=== PATIENT | female | born 1935 | race Two or more races ===

== ENCOUNTER 2017-02-01 09:46 | Inpatient (IN) | payer MEDICARE ==
[2017-02-01 09:55] VITALS: BMI 23.9
[2017-02-01] MEDS ORDERED: Albuterol-Ipratrop 3 mg / 0.5 (3 ml) UD INH STA (11:01)
[2017-02-01] MEDS ORDERED: Albuterol-Ipratrop 3 mg / 0.5 (3 ml) UD IH STA (11:01)
--- NOTE | 2017-02-01 11:06 | ED PDOC ---
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 (+) rhinorrhea, (-) cough, congestion, chest pain, abdominal pain, leg pain, or dizziness. Daughter believes that SOB has been gradually worsening over the last month and may be secondary to anemia. Patient states she currently takes iron pills and Levothyroxine. No numbness, tingles, weakness. PCP: Linh Past Medical History Reviewed: Historical Data, Nursing Documentation, Vital Signs Vital Signs: Last Vital Signs Temp 98.7 F 02/01/17 10:17 Pulse 67 02/01/17 10:17 Resp 19 02/01/17 10:18 BP 144/70 02/01/17 10:17 Pulse Ox 100 02/01/17 11:14 - Medical History PMH: Anemia, CVA, Hypothyroidism - Family History Family History: States: Unknown Family Hx - Living Arrangements Living Arrangements: With Family - Social History Current smoker - smoking cessation education provided: No Ex-Smoker (has not smoked in the last 12 months): No Alcohol: None Drugs: Denies - Allergies Allergies/Adverse Reactions: Allergies Allergy/AdvReac Type Severity Reaction Status Date / Time No Known Allergies Allergy Verified 02/01/17 10:12 Curb-65 Severity Score - CURB-65 Severity Score Confusion: No Respiratory Rate greater than/equal to 30: No Systolic BP <90 or Diastolic BP less than/equal 60mmHg: No Age >64: Yes Curb-65 Score: 1 Percentage 30-day mortality: 2.7% Wells Criteria for PE - Wells Criteria for Pulmonary Embolism Heart Rate >100: No Hemoptysis: No Total Score: 0 Review of Systems ROS Statement: Except As Marked, All Systems Reviewed And Found Negative ENT: Positive for: Nose Discharge. Negative for: Nose Congestion Cardiovascular: Negative for: Chest Pain Respiratory: Positive for: Shortness of Breath. Negative for: Cough Physical Exam - Reviewed Nursing Documentation Reviewed: Yes Vital Signs Reviewed: Yes - Physical Exam Appears: Positive for: Non-toxic, No Acute Distress Head Exam: Positive for: ATRAUMATIC, NORMOCEPHALIC Skin: Positive for: Normal Color, Warm, Dry Eye Exam: Positive for: Normal appearance, EOMI, PERRL ENT: Positive for: Normal ENT Inspection, Nasal Congestion. Negative for: Pharyngeal Erythema, Tonsillar Exudate Neck: Positive for: Normal, Painless ROM, Supple Cardiovascular/Chest: Positive for: Regular Rate, Rhythm. Negative for: Murmur Respiratory: Positive for: Decreased Breath Sounds, Wheezing (mild). Negative for: Respiratory Distress Gastrointestinal/Abdominal: Positive for: Normal Exam, Soft. Negative for: Tenderness Back: Positive for: Normal Inspection. Negative for: L CVA Tenderness, R CVA Tenderness Extremity: Positive for: Normal ROM. 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 Negative for: Motor/Sensory Deficits - Laboratory Results Result Diagrams: 02/01/17 11:31 02/01/17 11:31 Interpretation Of Abn Labs: 23.1.3 bun/cr; 6.7 hg - ECG ECG: Positive for: Interpreted By Me, Viewed By Me ECG Rhythm: Positive for: Normal QRS, Normal ST Segment, Sinus Rhythm Interpretation Of Abn EKG: q waves septal O2 Sat by Pulse Oximetry: 100 (RA) Pulse Ox Interpretation: Normal - Radiology X-Ray: Interpreted by Me, Viewed By Me X-Ray Interpretation: Infiltrates (RLL) - Progress ED Course And Treament: 1309: Will need transfusion. Consented. 1332: Stable. AAOx3. Pain free. Spoke with Dr. Puentes. Will admit tele. Will give further orders when pt. reaches floor. Medical Decision Making Medical Decision Makin Initial impression: evaluation for dyspnea Initial plan: * VBG * EKG * Labs * Magnesium * Phosphorus * Trop I * PTT/PT * CXR * Duonebs 3mL INH x2 * NS IV * BCx * Peak flow pre/post Tx Scribe Attestation: Documented by Josey cD acting as a scribe for Jonathan Cherry MD. Scribe Attestation: All medical record entries made by the Scribe were at my direction and personally dictated by me. I have reviewed the chart and agree that the record accurately reflects my personal performance of the history, physical exam, medical decision making, and the department course for this patient. I have also personally directed, reviewed, and agree with the discharge instructions and disposition. Disposition - Clinical Impression Clinical Impression: Anemia, Pneumonia - Patient ED Disposition Is Patient to be Admitted: Yes - Disposition Disposition Time: 13:34 Condition: FAIR - Pt Status Changed To: Hospital Disposition Of: Inpatient - Admit Certification Admit to Inpatient:: After my assessment, the patient will require hospitalization for at least two midnights. This is because of the severity of symptoms shown, intensity of services needed, and/or the medical risk in this patient being treated as an outpatient. - POA Present On Arrival: None
[2017-02-01] MEDS ORDERED: Albuterol-Ipratrop 3 mg / 0.5 (3 ml) UD ONE ×2 (11:26→11:44)
[2017-02-01 11:43] LABS: VENOUS BLOOD GAS BASE EXCESS -4.4 mmol/L (0.0-2.0); VENOUS BLOOD GAS PCO2 39 mmHg (40-60); VENOUS BLOOD GAS PO2 17 mm/Hg (30-55); VENOUS BLOOD PH 7.34 (7.32-7.43)
[2017-02-01] MEDS: Sodium Chloride 0.9% 1,000 ML IV SCH (11:44)
[2017-02-01 11:56] LABS: BASO # 0.1 K/uL (0.0-0.2); BASO % 2.1 % (0.0-2.0); EOS # 0.2 K/uL (0.0-0.7); EOS % 3.2 % (0.0-4.0); HEMOGLOBIN 6.7 g/dL (12.0-16.0); LYMPH # 0.8 K/uL (1.0-4.3); LYMPH % 16.7 % (20.0-40.0); MEAN CELL VOLUME 67.8 fl (81.0-99.0); MEAN PLATELET VOLUME 9.3 fl (7.2-11.7); MONO # 0.5 K/uL (0.0-0.8); MONO % 9.9 % (0.0-10.0); NEUT # 3.4 K/uL (1.8-7.0); NEUT % 68.1 % (50.0-75.0); RBC 3.55 Mil/uL (3.80-5.20)
[2017-02-01 12:04] LABS: ALB/GLOB RATIO 1.5 (1.0-2.1); ALBUMIN 3.9 g/dL (3.5-5.0); ALT/SGPT 40 U/L (9-52); AST/SGOT 23 U/L (14-36); BLOOD UREA NITROGEN 23 mg/dl (7-17); CALCIUM 9.1 mg/dL (8.4-10.2); GFR AFRICAN-AMERICAN 48; GFR NON-AFRICAN AMERICAN 40; MAGNESIUM 2.1 MG/DL (1.6-2.3)
[2017-02-01 12:15] LABS: B-TYPE NATRIURETIC PEPTIDE 518 pg/ml (0-900)
[2017-02-01 12:16] LABS: PARTIAL THROMBOPLASTIN TIME 27.3 Seconds (25.6-37.1)
[2017-02-01] MEDS ORDERED: cefTRIAXone (Rocephin) 1 gm Inj IV ONE (13:10)
[2017-02-01] MEDS ORDERED: cefTRIAXone (Rocephin) 1 gm Inj ONE (13:45)
[2017-02-01 13:59] LABS: IRON 20 ug/dL (37-170)
[2017-02-01 14:08] LABS: % IRON SATURATION 6 % (20-55); TOTAL IRON BINDING CAPACITY 371 ug/dL (250-450)
[2017-02-01] MEDS ORDERED: Azithromycin 500 MG in Sodium Chloride 0.9% 250 ML IVPB STA (14:15)
[2017-02-01 14:34] LABS: FERRITIN 4.9 ng/mL
--- NOTE | 2017-02-01 19:22 | CARD ---
APPROVED REPORT EKG Measurement Heart [id number] <Conclusion> Sinus rhythm with fusion complexes and premature atrial complexes Septal infarct, age undetermined Abnormal ECG
--- NOTE | 2017-02-01 19:26 | CP.PCM.CON ---
History of Present Illness - History of Present Illness History of Present Illness: 81 year old female with a history of anemia, CVA, admitted with symptomatic anemia. The patient reports to progressive shortness of breath which concerned her daughter and prompted her to bring her to the ER. She denies abnormal bleeding and bruising. She was found to have a hgb of 6.7. She is currently receiving PRBC transfusion and reports to feeling better. Past medical history: Anemia, CVA Past surgical history: Denies Family history: Denies hematologic and oncologic problems Social history: Denies tobacco, alcohol, and illicit drug use. Allergies: NKA Review of systems: All remaining review of systems including HEENT, cardiovascular, respiratory, gastrointestinal, genitourinary, musculoskeletal, dermatologic, neurologic, and psychiatric are negative unless mentioned in the HPI. Past Patient History - Infectious Disease Hx of Infectious Diseases: None - Past Medical History & Family History Past Medical History?: Yes - Past Social History Smoking Status: Never Smoked - CARDIAC Hx Cardiac Disorders: No - NEUROLOGICAL HX Cerebrovascular Accident: Yes - ENDOCRINE/METABOLIC Hx Hypothyroidism: Yes - HEMATOLOGICAL/ONCOLOGICAL Hx Blood Disorders: Yes - MUSCULOSKELETAL/RHEUMATOLOGICAL Hx Falls: No - PSYCHIATRIC Hx Psychophysiologic Disorder: Yes Hx Substance Use: No Meds Allergies/Adverse Reactions: Allergies Allergy/AdvReac Type Severity Reaction Status Date / Time No Known Allergies Allergy Verified 02/01/17 10:12 - Medications Medications: Current Medications Sodium Chloride (Sodium Chloride 0.9%) 1,000 mls @ 150 mls/hr IV .Q6H40M JASIEL Last Admin: 02/01/17 11:44 Dose: 150 mls/hr Physical Exam - Head Exam Head Exam: ATRAUMATIC - Eye Exam Eye Exam: Normal appearance - ENT Exam ENT Exam: Mucous Membranes Dry - Respiratory Exam Respiratory Exam: NORMAL BREATHING PATTERN - Cardiovascular Exam Cardiovascular Exam: +S1 - GI/Abdominal Exam GI & Abdominal Exam: Normal Bowel Sounds - Extremities Exam Extremities exam: Positive for: normal inspection Results - Vital Signs Recent Vital Signs: Last Vital Signs Temp 97.5 F L 02/01/17 15:15 Pulse 84 02/01/17 15:15 Resp 16 02/01/17 15:51 BP 135/64 02/01/17 15:15 Pulse Ox 97 02/01/17 15:15 - Labs Result Diagrams: 02/01/17 11:31 07/22/17 11:31 Labs: Laboratory Results - last 24 hr 02/01/17 13:31 Blood Type A POSITIVE Antibody Screen Negative Crossmatch See Detail BBK History Checked Patient has bt Assessment & Plan (1) Anemia Assessment and Plan: low ferritin consistent with iron deficiency agree with transfusion support will start IV iron for GI evaluation Thank you for this interesting consult. Status: Acute
[2017-02-02] MEDS: Sodium Chloride 0.9% 1,000 ML IV SCH ×4 (00:20→21:00)
[2017-02-02 02:16] LABS: SQUAMOUS EPITHIAL 2 /hpf (0-5); URINE BACTERIA RARE (<OCC); URINE BILIRUBIN NEGATIVE (NEGATIVE); URINE BLOOD MODERATE (NEGATIVE); URINE CLARITY SLIGHTY-CLOUDY (Clear); URINE COLOR YELLOW (YELLOW); URINE GLUCOSE (UA) NEG (Normal); URINE HYALINE CAST 0-2 /hpf (0-2); URINE LEUKOCYTE ESTERASE LARGE Leu/uL (Negative); URINE NITRATE NEGATIVE (NEGATIVE); URINE PROTEIN NEGATIVE (NEGATIVE); URINE UROBILINOGEN 0.2-1.0 mg/dL (0.2-1.0)
[2017-02-02 08:38] LABS: MEAN CELL VOLUME 71.5 fl (81.0-99.0); MEAN CORPUSCULAR HEMOGLOBIN 21.7 pg (27.0-31.0); MEAN CORPUSCULAR HGB CONC 30.4 g/dL (33.0-37.0); RBC 4.07 Mil/uL (3.80-5.20); WHITE BLOOD COUNT 8.3 K/uL (4.8-10.8)
[2017-02-02 08:46] LABS: HEMOGLOBIN 8.8 g/dL (12.0-16.0)
--- NOTE | 2017-02-02 08:49 | RAD ---
HISTORY: Sepsis Patient COMPARISON: No prior. FINDINGS: LUNGS: No active pulmonary disease. PLEURA: No significant pleural effusion identified, no pneumothorax apparent. CARDIOVASCULAR: Cardiomegaly atherosclerotic aorta.. OSSEOUS STRUCTURES: No significant abnormalities. VISUALIZED UPPER ABDOMEN: Normal. OTHER FINDINGS: None. IMPRESSION: No active disease.
--- NOTE | 2017-02-02 11:23 | CARD ---
APPROVED REPORT EKG Measurement Heart [id number] HI [id number] <Conclusion> Sinus rhythm with 1st degree AV block Otherwise normal ECG
--- NOTE | 2017-02-02 12:16 | CP.PCM.CON ---
History of Present Illness - History of Present Illness History of Present Illness: THE PATIENT IS A 81 YEAR OLD FEMALE ADMITTED TO [facility] WITH SYMPTOMATIC IRON DEFICIENCY ANEMIA WITH TIREDNESS AND SOB. SHE ALSO HAS A HISTORY OF AN OLD CVA AND HYPOTHYROIDISM. THE PATIENT DOES NOT RECALL ANY DETAILS OF THE OLD CVA. CARDIOLOGY WAS ASKED TO SEE AND FOLLOW HER. SHE DENIES CHEST PAIN OR ANY HISTORY OF CARDIAC DISEASE SUCH CAD OR PRIOR VT. Past Patient History - Infectious Disease Hx of Infectious Diseases: None - Past Medical History & Family History Past Medical History?: Yes - Past Social History Smoking Status: Never Smoked - CARDIAC Hx Cardiac Disorders: No - NEUROLOGICAL HX Cerebrovascular Accident: Yes - ENDOCRINE/METABOLIC Hx Hypothyroidism: Yes - HEMATOLOGICAL/ONCOLOGICAL Hx Blood Disorders: Yes - MUSCULOSKELETAL/RHEUMATOLOGICAL Hx Falls: No - PSYCHIATRIC Hx Psychophysiologic Disorder: Yes Hx Substance Use: No Meds Allergies/Adverse Reactions: Allergies Allergy/AdvReac Type Severity Reaction Status Date / Time No Known Allergies Allergy Verified 02/01/17 10:12 - Medications Medications: Current Medications Sodium Chloride (Sodium Chloride 0.9%) 1,000 mls @ 150 mls/hr IV .Q6H40M JASIEL Last Admin: 02/02/17 06:19 Dose: 150 mls/hr Iron Sucrose 200 mg/ Sodium (Chloride) 110 mls @ 110 mls/hr IVPB DAILY JASIEL Stop: 02/07/17 09:01 Last Admin: 02/02/17 10:15 Dose: 110 mls/hr Physical Exam - Respiratory Exam Respiratory Exam: Clear to Auscultation Bilateral - Cardiovascular Exam Cardiovascular Exam: REGULAR RHYTHM, +S1, +S2 - Extremities Exam Extremities exam: Positive for: normal inspection - Additional Findings Additional findings: EKG NSR, QS V1 AND V2 TROPONINS NORMAL X 2 PBNP NORMAL H/H 6/24 FE LEVEL LOW Results - Vital Signs Recent Vital Signs: Last Vital Signs Temp 98.1 F 02/02/17 08:00 Pulse 70 02/02/17 09:00 Resp 18 02/02/17 08:00 BP 149/72 02/02/17 08:00 Pulse Ox 95 02/02/17 08:00 - Labs Result Diagrams: 02/02/17 06:00 02/01/17 11:31 Labs: Laboratory Results - last 24 hr 02/01/17 02/01/17 02/02/17 13:31 20:30 06:00 WBC RBC Hgb Hct MCV MCH MCHC RDW Plt Count Troponin I < 0.0120 0.0210 Blood Type A POSITIVE Antibody Screen Negative Crossmatch See Detail BBK History Checked Patient has bt 02/02/17 06:00 WBC 8.3 D RBC 4.07 Hgb 8.8 L D Hct 29.1 L MCV 71.5 L D MCH 21.7 L MCHC 30.4 L RDW 22.0 H Plt Count 194 Troponin I Blood Type Antibody Screen Crossmatch BBK History Checked Assessment & Plan - Assessment and Plan (Free Text) Assessment: IRON DEFICIENCY ANEMIA EKG WITH QS IN V1 AND V2 IS WNL AND PATIENT DOES NOT HAVE ANY HISTORY OF CAD OR [place] OLD CVA Plan: THE PATIENT IS RECEIVING A BLOOD TRANSFUSION AND IV IRON HEMATOLOGY IS ON CONSULT
--- NOTE | 2017-02-02 14:23 | CP.PCM.PN ---
Subjective - Date & Time of Evaluation Date of Evaluation: 02/02/17 Time of Evaluation: 14:00 - Subjective Subjective: Feeling better s/p 2U PRBC Objective - Vital Signs/Intake and Output Vital Signs (last 24 hours): Temp Pulse Resp BP Pulse Ox 98.4 F 64 18 138/62 95 02/02/17 12:00 02/02/17 12:00 02/02/17 12:00 02/02/17 12:00 02/02/17 12:00 - Medications Medications: Current Medications Sodium Chloride (Sodium Chloride 0.9%) 1,000 mls @ 150 mls/hr IV .Q6H40M JASIEL Last Admin: 02/02/17 06:19 Dose: 150 mls/hr Iron Sucrose 200 mg/ Sodium (Chloride) 110 mls @ 110 mls/hr IVPB DAILY [facility] Stop: 02/07/17 09:01 Last Admin: 02/02/17 10:15 Dose: 110 mls/hr - Labs Labs: 02/02/17 06:00 PT 11.0 Seconds (9.8-13.1) 02/01/17 11:31 INR 1.0 (0.9-1.2) 02/01/17 11:31 APTT 27.3 Seconds (25.6-37.1) 02/01/17 11:31 - Head Exam Head Exam: ATRAUMATIC - Eye Exam Eye Exam: Normal appearance - ENT Exam ENT Exam: Mucous Membranes Dry - Respiratory Exam Respiratory Exam: NORMAL BREATHING PATTERN - Cardiovascular Exam Cardiovascular Exam: +S1, +S2 - GI/Abdominal Exam GI & Abdominal Exam: Normal Bowel Sounds - Extremities Exam Extremities Exam: Normal Inspection Assessment and Plan (1) Anemia Assessment & Plan: iron deficiency s/p 2U PRBC on IV iron GI work up Status: Acute
--- NOTE | 2017-02-02 15:43 | CP.PCM.CON ---
History of Present Illness - History of Present Illness History of Present Illness: Pulmonary consult for a 81 y/o F, admitted to [facility] on 02/01/17 due to progressive, moderate SOB for few days with no relief, no associated to cough, but to generalized weakness, tiredness for days. Worsening symptoms: Pt found with Iron deficiency anemia Hgb: 6.7 there after had 2 U Fe. transfusions, Hgb today 8.8 Pt denied: Fever, chills, cough, coughing up blood, LOC, syncope, CP, numbness, n/v/d, abdominal pain, sick contact. 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 CXR showed: No active disease. EKG: Sinus rhythm with 1st degree AV block. Review of Systems - Constitutional Constitutional: Weakness - EENT Eyes: Other (negative) Ears: Other (negative) Nose/Mouth/Throat: Other (negative) - Cardiovascular Cardiovascular: Other (negative) - Respiratory Respiratory: Other (negative) - Gastrointestinal Gastrointestinal: Other (negative) - Genitourinary Genitourinary: Other (ngative) - Musculoskeletal Musculoskeletal: Other (negative) - Integumentary Integumentary: Other (negative) - Neurological Neurological: Other (negative) - Psychiatric Psychiatric: Other (negative) - Endocrine Endocrine: Other (negative) - Hematologic/Lymphatic Hematologic: Other (anemia.) Past Patient History - Infectious Disease Hx of Infectious Diseases: None - Past Medical History & Family History Past Medical History?: Yes Pertinent Family History: Unknown - Past Social History Smoking Status: Never Smoked Alcohol: None Drugs: Denies Home Situation {Lives}: With Family - CARDIAC Hx Cardiac Disorders: No - PULMONARY Hx Respiratory Disorders: No - NEUROLOGICAL Hx Neurological Disorder: Yes HX Cerebrovascular Accident: Yes - HEENT Hx HEENT Problems: No - RENAL Hx Chronic Kidney Disease: No - ENDOCRINE/METABOLIC Hx Endocrine Disorders: Yes Hx Hypothyroidism: Yes - HEMATOLOGICAL/ONCOLOGICAL Hx Blood Disorders: Yes - INTEGUMENTARY Hx Dermatological Problems: No - MUSCULOSKELETAL/RHEUMATOLOGICAL Hx Musculoskeletal Disorders: No Hx Falls: No - GASTROINTESTINAL Hx Gastrointestinal Disorders: No - GENITOURINARY/GYNECOLOGICAL Hx Genitourinary Disorders: No - PSYCHIATRIC Hx Psychophysiologic Disorder: Yes Hx Substance Use: No - SURGICAL HISTORY Hx Surgeries: No - ANESTHESIA Hx Anesthesia: No Meds Allergies/Adverse Reactions: Allergies Allergy/AdvReac Type Severity Reaction Status Date / Time No Known Allergies Allergy Verified 02/01/17 10:12 - Medications Medications: Current Medications Sodium Chloride (Sodium Chloride 0.9%) 1,000 mls @ 150 mls/hr IV .Q6H40M [facility] Last Admin: 02/02/17 06:19 Dose: 150 mls/hr Iron Sucrose 200 mg/ Sodium (Chloride) 110 mls @ 110 mls/hr IVPB DAILY [facility] Stop: 02/07/17 09:01 Last Admin: 02/02/17 10:15 Dose: 110 mls/hr Physical Exam - Constitutional Appears: No Acute Distress - Head Exam Head Exam: NORMAL INSPECTION - Eye Exam Eye Exam: PERRL - ENT Exam ENT Exam: Normal Oropharynx - Neck Exam Neck exam: Positive for: Normal Inspection - Respiratory Exam Respiratory Exam: NORMAL BREATHING PATTERN - Cardiovascular Exam Cardiovascular Exam: REGULAR RHYTHM - GI/Abdominal Exam GI & Abdominal Exam: Normal Bowel Sounds, Soft - Extremities Exam Extremities exam: Positive for: normal inspection - Neurological Exam Neurological exam: Alert, Oriented x3 - Psychiatric Exam Psychiatric exam: Normal Mood - Skin Skin Exam: Warm Results - Vital Signs Recent Vital Signs: Last Vital Signs Temp 98.4 F 02/02/17 12:00 Pulse 64 02/02/17 12:00 Resp 18 02/02/17 12:00 BP 138/62 02/02/17 12:00 Pulse Ox 95 02/02/17 12:00 reviewed J.P. - Labs Result Diagrams: 02/03/17 10:20 02/03/17 10:20 Labs: Laboratory Results - last 24 hr 02/01/17 02/01/17 02/02/17 13:31 20:30 06:00 WBC RBC Hgb Hct MCV MCH MCHC RDW Plt Count Troponin I < 0.0120 0.0210 Blood Type A POSITIVE Antibody Screen Negative Crossmatch See Detail BBK History Checked Patient has bt 02/02/17 06:00 WBC 8.3 D RBC 4.07 Hgb 8.8 L D Hct 29.1 L MCV 71.5 L D MCH 21.7 L MCHC 30.4 L RDW 22.0 H Plt Count 194 Troponin I Blood Type Antibody Screen Crossmatch BBK History Checked reviewed J.P. - EKG Data EKG comments: reviewed J.P. - Imaging and Cardiology Chest x-ray Status: Report reviewed by me (Moises) Assessment & Plan (1) Iron (Fe) deficiency anemia Status: Acute Priority: High - Assessment and Plan (Free Text) Plan: Pt has no fever, no SOB, no chest congestion, no LOUIS, CXR no active disease. Anemia is not affecting respiratory condition, keep Tx Pt for anemia, Will continue to monitor Pt. - Date & Time Date: 02/02/17
--- NOTE | 2017-02-02 22:59 | CP.PCM.HP ---
History of Present Illness - History of Present Illness History of Present Illness: 81 yo with hx of Fe deficiency anemia Vit B12 deficiency ?old CVA admitted with Hbg of 6.7 Present on Admission - Present on Admission Any Indicators Present on Admission: No Past Patient History - Infectious Disease Hx of Infectious Diseases: None - Past Medical History & Family History Past Medical History?: Yes - Past Social History Smoking Status: Never Smoked - CARDIAC Hx Cardiac Disorders: No - NEUROLOGICAL HX Cerebrovascular Accident: Yes - ENDOCRINE/METABOLIC Hx Hypothyroidism: Yes - HEMATOLOGICAL/ONCOLOGICAL Hx Blood Disorders: Yes - MUSCULOSKELETAL/RHEUMATOLOGICAL Hx Falls: No - PSYCHIATRIC Hx Psychophysiologic Disorder: Yes Hx Substance Use: No Meds Allergies/Adverse Reactions: Allergies Allergy/AdvReac Type Severity Reaction Status Date / Time No Known Allergies Allergy Verified 02/01/17 10:12 Physical Exam - Respiratory Exam Respiratory Exam: NORMAL BREATHING PATTERN - Cardiovascular Exam Cardiovascular Exam: REGULAR RHYTHM - GI/Abdominal Exam GI & Abdominal Exam: Normal Bowel Sounds Results - Vital Signs Recent Vital Signs: Last Vital Signs Temp 99.0 F 02/02/17 20:21 Pulse 115 H 02/02/17 20:21 Resp 19 02/02/17 20:21 BP 139/82 02/02/17 20:21 Pulse Ox 89 L 02/02/17 20:21 - Labs Result Diagrams: 02/02/17 06:00 02/01/17 11:31 Labs: Laboratory Results - last 24 hr 02/01/17 02/02/17 02/02/17 13:31 06:00 06:00 WBC 8.3 D RBC 4.07 Hgb 8.8 L D Hct 29.1 L MCV 71.5 L D MCH 21.7 L MCHC 30.4 L RDW 22.0 H Plt Count 194 Troponin I 0.0210 Stool Occult Blood Blood Type A POSITIVE Antibody Screen Negative Crossmatch See Detail BBK History Checked Patient has bt 02/02/17 17:51 WBC RBC Hgb Hct MCV MCH MCHC RDW Plt Count Troponin I Stool Occult Blood Positive H Blood Type Antibody Screen Crossmatch BBK History Checked Assessment & Plan - Assessment and Plan (Free Text) Assessment: Fe deficiency anemia Hypochromic microcytic anemia Transfuse 2 units Fe transfusions Hematology consult GI consult SOB 2 to above CXR??? Cardfiology and Pulmonary - Date & Time Date: 02/02/17 Time: :22
[2017-02-03] MEDS: Sodium Chloride 0.9% 1,000 ML IV SCH ×3 (03:00→17:18)
--- NOTE | 2017-02-03 09:19 | CP.PCM.PN ---
Subjective - Date & Time of Evaluation Date of Evaluation: 02/03/17 Time of Evaluation: 08:20 - Subjective Subjective: NO CHEST PAIN OR SOB Objective - Vital Signs/Intake and Output Vital Signs (last 24 hours): Temp Pulse Resp BP Pulse Ox 98.4 F 54 L 18 157/72 H 96 02/03/17 08:14 02/03/17 08:14 02/03/17 08:14 02/03/17 08:14 02/03/17 08:14 - Medications Medications: Current Medications Sodium Chloride (Sodium Chloride 0.9%) 1,000 mls @ 150 mls/hr IV .Q6H40M JASIEL Last Admin: 02/03/17 03:00 Dose: 150 mls/hr Iron Sucrose 200 mg/ Sodium (Chloride) 110 mls @ 110 mls/hr IVPB DAILY JASIEL Stop: 02/07/17 09:01 Last Admin: 02/02/17 10:15 Dose: 110 mls/hr - Labs Labs: 02/02/17 06:00 PT 11.0 Seconds (9.8-13.1) 02/01/17 11:31 INR 1.0 (0.9-1.2) 02/01/17 11:31 APTT 27.3 Seconds (25.6-37.1) 02/01/17 11:31 - Respiratory Exam Respiratory Exam: Clear to Ausculation Bilateral - Cardiovascular Exam Cardiovascular Exam: REGULAR RHYTHM, +S1, +S2 - Extremities Exam Extremities Exam: Normal Inspection - Additional Findings 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
[2017-02-03 10:37] LABS: HEMOGLOBIN 9.2 g/dL (12.0-16.0); MEAN CELL VOLUME 71.5 fl (81.0-99.0); MEAN CORPUSCULAR HGB CONC 30.8 g/dL (33.0-37.0); RBC 4.18 Mil/uL (3.80-5.20); RED CELL DISTRIBUTION WIDTH 22.5 % (11.5-14.5); WHITE BLOOD COUNT 5.8 K/uL (4.8-10.8)
[2017-02-03 10:55] LABS: BLOOD UREA NITROGEN 13 mg/dl (7-17); GFR AFRICAN-AMERICAN > 60; GFR NON-AFRICAN AMERICAN 53
[2017-02-03] MEDS ORDERED: Levothyroxine 75 MCG TAB PO SCH (13:45)
[2017-02-03 15:52] VITALS: RESP 20
--- NOTE | 2017-02-03 16:22 | CARD ---
APPROVED REPORT EXAM: Two-dimensional and M-mode echocardiogram with Doppler and color Doppler. Other Information Quality : GoodRhythm : NSR INDICATION Abnormal EKG/Arrhythmia 2D DIMENSIONS IVSd0.96 (0.7-1.1cm)LVDd4.31 (3.9-5.9cm) LVOT Diameter2.28 (1.8-2.4cm)PWd0.90 (0.7-1.1cm) IVSs1.19 (0.8-1.2cm)LVDs3.68 (2.5-4.0cm) FS (%) 14.6 %PWs1.27 (0.8-1.2cm) M-Mode DIMENSIONS Left Atrium (MM)4.50 (2.5-4.0cm)IVSd0.53 (0.7-1.1cm) Aortic Root3.65 (2.2-3.7cm)LVDd6.94 (4.0-5.6cm) Aortic Cusp Exc.2.09 (1.5-2.0cm)PWd0.76 (0.7-1.1cm) IVSs1.26 cmFS (%) 42 % LVDs4.03 (2.0-3.8cm)PWs1.18 cm Mitral Valve MV E Kascqihi85.6cm/sMV DECEL [id number] A Bcagplxu666.2cm/s MV [id number]/A ratio0.9MVA (PHT)6.66cm2 TDI Lateral E' Peak V7.01cm/sMedial E' Peak V4.73cm/sE/Lateral E'13.6 E/Medial E'20.2 Pulmonary Valve PV Peak Dtsxsose32.3cm/s Tricuspid Valve TR Peak [id number]/sRAP [id number] Peak Gr.37mmHg [id number] LEFT VENTRICLE The Left Ventricle is mildly dilated on the 2D study. There is normal left ventricular wall thickness. Left ventricle systolic function is mildly to moderately impaired. The Ejection Fraction is 40-45%. The LV wall motion appears to vary somewhat from one view to another. The inferior, posterior, septal and apical thomas appear hypokinetic in some views. The anterior and lateral thomas contract well. Transmitral Doppler flow pattern is Grade I-abnormal relaxation pattern. No left ventricle thrombus noted on this study. There is no ventricular septal defect visualized. There is no left ventricular aneurysm. There is no mass noted in the left ventricle. RIGHT VENTRICLE The right ventricle is normal size. There is normal right ventricular wall thickness. The right ventricular systolic function is normal. ATRIA The left atrium is mildly dilated. There is no thrombus suspected in the left atrium. The right atrium size is normal. The interatrial septum is intact with no evidence for an atrial septal defect. AORTIC VALVE The aortic valve is normal in structure and function. There is mild aortic regurgitation. There is no aortic valvular stenosis. MITRAL VALVE The mitral valve is normal in structure and function. There is no evidence of mitral valve prolapse. There is no mitral valve stenosis. Mitral regurgitation is moderate. TRICUSPID VALVE The tricuspid valve is normal in structure and function. There is mild to moderate tricuspid regurgitation. Right ventricular systolic pressure is estimated at 47 mmHg. There is no tricuspid valve prolapse or vegetation. There is no tricuspid valve stenosis. PULMONIC VALVE The pulmonary valve is normal in structure and function. There is no pulmonic valvular regurgitation. GREAT VESSELS The aortic root is normal in size. The IVC is normal in size and collapses >50% with inspiration. PERICARDIAL EFFUSION The pericardium appears normal. There is no pleural effusion. <Conclusion> The Left Ventricle is mildly dilated on the 2D study. There is normal left ventricular wall thickness. Left ventricle systolic function is mildly to moderately impaired. The Ejection Fraction is 40-45%. The left atrium is mildly dilated. The mitral, aortic and tricuspid valves are normal. There is moderate mitral regurgitation, mild aortic regurgitation and mild to moderate tricuspid regurgitation.
[2017-02-03 19:08] VITALS: BP 150/84; PULSE 96; TEMP 98.5; O2SAT 97
--- NOTE | 2017-02-03 21:16 | CP.PCM.PN ---
Subjective - Date & Time of Evaluation Date of Evaluation: 02/03/17 Time of Evaluation: 22:22 - Subjective Subjective: Admits to ASA occasionally Objective - Vital Signs/Intake and Output Vital Signs (last 24 hours): Temp Pulse Resp BP Pulse Ox 98.5 F 96 H 20 150/84 97 02/03/17 19:08 02/03/17 19:08 02/03/17 19:08 02/03/17 19:08 02/03/17 19:08 Intake and Output: 02/03/17 02/04/17 18:59 06:59 Intake Total 1300 Balance 1300 - Labs Labs: 02/03/17 10:20 02/03/17 10:20 PT 11.0 Seconds (9.8-13.1) 02/01/17 11:31 INR 1.0 (0.9-1.2) 02/01/17 11:31 APTT 27.3 Seconds (25.6-37.1) 02/01/17 11:31 - Respiratory Exam Respiratory Exam: NORMAL BREATHING PATTERN - Cardiovascular Exam Cardiovascular Exam: REGULAR RHYTHM - GI/Abdominal Exam GI & Abdominal Exam: Normal Bowel Sounds Assessment and Plan - Assessment and Plan (Free Text) Assessment: Fe deficiency anemia Hypochromic microcytic anemia 2 to ASA Transfuse 2 units Fe transfusions Hematology consult appreciated GI consult refused SOB 2 to above CXR??? Cardfiology and Pulmonary appreciated Hx of CVA?? Review old records
[2017-02-04] MEDS ORDERED: Levothyroxine 75 MCG TAB PO SCH (06:30)
== END 2017-02-03 20:08 | disposition home or self-care (01) | DRG 812 ==
LOC: SUPCPDRO 09:46 → H.ER 09:46 → H.ERHOLD 13:30 → H.TEL 15:21
PROVIDERS: ADMIT Family Medicine Geriatric Medicine; ATTEND Family Medicine Geriatric Medicine
PROC: 30233N1 Transfusion of Nonautologous Red Blood Cells into Peripheral Vein, Percutaneous Approach (ICD-10-PCS; principal; 2017-02-01)
DX: D50.8 Other iron deficiency anemias (principal); I69.328 Other speech and language deficits following cerebral infarction; E03.9 Hypothyroidism, unspecified; D64.89 Other specified anemias; T39.015A Adverse effect of aspirin, initial encounter; D51.9 Vitamin B12 deficiency anemia, unspecified